=== PATIENT | female | born 1945 | race American Indian/Alaskan Native ===

== ENCOUNTER 2017-09-05 13:23 | Inpatient (IN) | payer OTHER ==
--- NOTE | 2017-09-05 13:28 | Emergency Department Report ---
ED General Adult HPI - General Stated complaint: CVA Time Seen by Provider: 09/05/17 13:26 - History of Present Illness Initial comments: Patient is a 71-year-old female past medical history of right-sided weakness and cervical spinal surgery. Presents with right-sided weakness today. Patient does not speak Norwegian she speaks [place] of [place]. History is obtained by patient's son and EMS. Around 11:30 today patient was noticed by family to be on the floor. Is unknown when she fell. She has right sided weakness and is not able to move her right arm and right leg. Patient has not been taking some of her antihypertensive medication. Patient currently is not in any pain. She's had some right-sided weakness before but it has improved with surgery. Her son says that this is the worst her weakness has been. - Related Data Home Medications Medication Instructions Recorded Confirmed Last Taken Lisinopril [Zestril] 20 mg PO DAILY 09/05/17 09/05/17 Unknown Metoprolol [Lopressor] 25 mg PO BID 09/05/17 09/05/17 09/05/17 Pravastatin [Pravachol] 20 mg PO DAILY 09/05/17 09/05/17 Unknown Allergies Allergy/AdvReac Type Severity Reaction Status Date / Time No Known Allergies Allergy Unverified 09/05/17 13:24 ED Review of Systems ROS: Stated complaint: CVA Other details as noted in HPI Comment: Unobtainable due to pts medical conditions ED Past Medical Hx - Medications Home Medications: Home Medications Medication Instructions Recorded Confirmed Last Taken Type Lisinopril [Zestril] 20 mg PO DAILY 09/05/17 09/05/17 Unknown History Metoprolol [Lopressor] 25 mg PO BID 09/05/17 09/05/17 09/05/17 History Pravastatin [Pravachol] 20 mg PO DAILY 09/05/17 09/05/17 Unknown History ED Physical Exam - General General appearance: alert, in no apparent distress - Head Head exam: Present: atraumatic, normocephalic - Eye Eye exam: Present: normal appearance - ENT ENT exam: Present: mucous membranes moist - Neck Neck exam: Present: normal inspection - Respiratory Respiratory exam: Present: normal lung sounds bilaterally. Absent: respiratory distress - Cardiovascular Cardiovascular Exam: Present: regular rate, normal rhythm. Absent: systolic murmur, diastolic murmur, rubs, gallop - GI/Abdominal GI/Abdominal exam: Present: soft, normal bowel sounds - Extremities Exam Extremities exam: Present: normal inspection - Back Exam Back exam: Present: normal inspection - Neurological Exam Neurological exam: Present: motor sensory deficit (right arm and right leg parathesia. Mild right facial droop. ) - Psychiatric Psychiatric exam: Present: normal affect, normal mood - Skin Skin exam: Present: warm, dry, intact, normal color. Absent: rash - Other Other exam information: Patient's NIH stroke scale is 14 ED Course Vital Signs 09/05/17 09/05/17 09/05/17 13:41 14:08 14:09 Temperature 97.9 F Pulse Rate 61 52 L Respiratory 18 21 28 H Rate Blood Pressure 169/96 174/93 Blood Pressure [Left] O2 Sat by Pulse 98 98 98 Oximetry 09/05/17 09/05/17 09/05/17 14:17 14:30 15:00 Temperature 97.9 F 97.8 F Pulse Rate 59 L 53 L 61 Respiratory 21 15 22 Rate Blood Pressure 167/87 172/95 Blood Pressure 172/93 167/87 [Left] O2 Sat by Pulse 98 99 100 Oximetry 09/05/17 09/05/17 09/05/17 15:30 16:00 16:30 Temperature Pulse Rate 63 62 59 L Respiratory 23 29 H 31 H Rate Blood Pressure 171/93 169/105 184/94 Blood Pressure [Left] O2 Sat by Pulse 98 98 98 Oximetry 09/05/17 16:45 Temperature Pulse Rate 58 L Respiratory Rate Blood Pressure 174/93 Blood Pressure [Left] O2 Sat by Pulse Oximetry ED Medical Decision Making - Lab Data Result diagrams: 09/05/17 13:25 09/05/17 13:25 Lab Results 09/05/17 09/05/17 09/05/17 Range/Units 13:25 13:25 13:25 WBC 4.8 (4.5-11.0) K/mm3 RBC 4.70 (3.65-5.03) M/mm3 Hgb 12.6 (10.1-14.3) gm/dl Hct 38.2 (30.3-42.9) % MCV 81 (79-97) fl MCH 27 L (28-32) pg MCHC 33 (30-34) % RDW 14.1 (13.2-15.2) % Plt Count 229 (140-440) K/mm3 Lymph % (Auto) 53.4 H (13.4-35.0) % [place] % (Auto) 8.7 H (0.0-7.3) % Eos % (Auto) 2.1 (0.0-4.3) % Baso % (Auto) 0.4 (0.0-1.8) % Lymph # 2.6 (1.2-5.4) K/mm3 [place] # 0.4 (0.0-0.8) K/mm3 Eos # 0.1 (0.0-0.4) K/mm3 Baso # 0.0 (0.0-0.1) K/mm3 Seg Neutrophils % 35.4 L (40.0-70.0) % Seg Neutrophils # 1.7 L (1.8-7.7) K/mm3 PT 13.6 (12.2-14.9) Sec. INR 0.99 (0.87-1.13) APTT 25.4 (24.2-36.6) Sec. Thrombin Time (15.1-19.6) Sec. Sodium 142 (137-145) mmol/L Potassium 4.1 (3.6-5.0) mmol/L Chloride 104.8 (98-107) mmol/L Carbon Dioxide 25 (22-30) mmol/L Anion Gap 16 mmol/L BUN 19 H (7-17) mg/dL Creatinine 0.8 (0.7-1.2) mg/dL Estimated GFR > 60 ml/min BUN/Creatinine Ratio 24 % Glucose 102 H (65-100) mg/dL Calcium 8.8 (8.4-10.2) mg/dL Troponin T < 0.010 (0.00-0.029) ng/mL 09/05/17 Range/Units 13:25 WBC (4.5-11.0) K/mm3 RBC (3.65-5.03) M/mm3 Hgb (10.1-14.3) gm/dl Hct (30.3-42.9) % MCV (79-97) fl MCH (28-32) pg MCHC (30-34) % RDW (13.2-15.2) % Plt Count (140-440) K/mm3 Lymph % (Auto) (13.4-35.0) % [place] % (Auto) (0.0-7.3) % Eos % (Auto) (0.0-4.3) % Baso % (Auto) (0.0-1.8) % Lymph # (1.2-5.4) K/mm3 [place] # (0.0-0.8) K/mm3 Eos # (0.0-0.4) K/mm3 Baso # (0.0-0.1) K/mm3 Seg Neutrophils % (40.0-70.0) % Seg Neutrophils # (1.8-7.7) K/mm3 PT (12.2-14.9) Sec. INR (0.87-1.13) APTT (24.2-36.6) Sec. Thrombin Time 15.0 L (15.1-19.6) Sec. Sodium (137-145) mmol/L Potassium (3.6-5.0) mmol/L Chloride (98-107) mmol/L Carbon Dioxide (22-30) mmol/L Anion Gap mmol/L BUN (7-17) mg/dL Creatinine (0.7-1.2) mg/dL Estimated GFR ml/min BUN/Creatinine Ratio % Glucose (65-100) mg/dL Calcium (8.4-10.2) mg/dL Troponin T (0.00-0.029) ng/mL - EKG Data -: EKG Interpreted by Ca - EKG Data 09/05/17 19:44 EKG shows normal sinus rhythm mild left atrial enlargement no ST segment elevation - Radiology Data Radiology results: report reviewed, image reviewed CT head: Shows no acute no cranial abnormality small changes of ischemic vascular disease. - Medical Decision Making Chief medical diagnosis: Ischemic Stroke Differential multiple diagnosis: Deshawn's paralysis, hypoglycemia, TIA, radiculopathy Of it CBC, CMP, CK, stroke robot, EKG, troponin Patient most likely has an ischemic stroke. This unknown if her stroke was at 11:30 her NIH stroke scale is roughly 16. Due to patient having neck surgery and not knowing when it was occurred it is one of the absolute contraindications for TPA. Patient's blood pressure is also 184/94 most likely due to ischemic hypertension. I will give patient medications for her blood pressure. Patient will need to be admitted to the hospitalist service due to her stroke and most likely will need a stroke workup. Discussed with Dr. Lin the hospitalist. Critical care attestation.: If time is entered above; I have spent that time in minutes in the direct care of this critically ill patient, excluding procedure time. ED Disposition Clinical Impression: Left-sided weakness CVA (cerebral vascular accident) Qualifiers: CVA mechanism: unspecified Qualified Code(s): I63.9 - Cerebral infarction, unspecified Hypertension Qualifiers: Hypertension type: unspecified Qualified Code(s): I10 - Essential (primary) hypertension Disposition: OP ADMIT IP TO THIS HOSP Is pt being admited?: No Does the pt Need Aspirin: No Condition: Stable
[2017-09-05 13:32] LABS: Basophils % (Auto) 0.4 % (0.0-1.8); Eosinophils % (Auto) 2.1 % (0.0-4.3); Hematocrit 38.2 % (30.3-42.9); Hemoglobin 12.6 gm/dl (10.1-14.3); Mean Corpuscular HGB Conc 33 % (30-34); Mean Corpuscular Hemoglobin 27 pg (28-32); Mean Corpuscular Volume 81 fl (79-97); Platelet Count 229 K/mm3 (140-440); Red Cell Distribution Width 14.1 % (13.2-15.2); White Blood Count 4.8 K/mm3 (4.5-11.0)
[2017-09-05 13:42] LABS: INR 0.99 (0.87-1.13)
[2017-09-05 13:43] LABS: Partial Thromboplastin Time 25.4 Sec. (24.2-36.6)
[2017-09-05 13:47] LABS: Anion Gap 16 mmol/L; BUN/Creatinine Ratio 24; Blood Urea Nitrogen 19 mg/dL (7-17); Calcium 8.8 mg/dL (8.4-10.2); Carbon Dioxide 25 mmol/L (22-30); Chloride 104.8 mmol/L (98-107); Glucose 102 mg/dL (65-100); Potassium 4.1 mmol/L (3.6-5.0); Sodium 142 mmol/L (137-145)
--- NOTE | 2017-09-05 14:02 | Cat Scan Report ---
FINAL REPORT EXAM: CT HEAD/BRAIN WO CON HISTORY: neuro deficits \T\lt; 6hrs or sx present upon awakening TECHNIQUE: CT of the head was performed without intravenous contrast. PRIORS: None. FINDINGS: The ventricles are normal in shape and position. The ventricles are nondilated. No intracranial hemorrhage, mass, mass effect, midline shift or evidence of acute ischemic infarct. The basilar cisterns are patent. Mild scattered areas of low-attenuation are seen in the periventricular and subcortical white matter. The paranasal sinuses are clear. The extracranial soft tissues demonstrate no abnormality. The calvarium is intact. The orbits are intact. The mastoid air cells are clear. IMPRESSION: 1. No acute intracranial abnormality. 2. Mild findings of chronic microvascular ischemic disease.
--- NOTE | 2017-09-05 15:56 | History and Physical Report ---
History of Present Illness Date of examination: 09/05/17 Date of admission: 09/05/17 Chief complaint: CC R Side weakness since about 10 AM History of present illness: SAVOONGA:71 year old AAF from [facility] who speaks [place] language which is commonly spoken in [place] brought in for Rt sided weakness and Aphasia.Patient is normally talking and walking around.Patient was home alone and when the daughter arrived-patient was found to be slumped over on the floor in the kitchen. Unable to talk and total right sided weakness.Noseizures.Has HTn and HLD .Questionable history of CVA in past.No CAD.No Sob.No chest pain.Language barrier present. Past History Past Medical History: hypertension, hyperlipidemia, stroke (???) Past Surgical History: No surgical history Social history: no significant social history, lives with family, full code Family history: hypertension Medications and Allergies Allergies Allergy/AdvReac Type Severity Reaction Status Date / Time No Known Allergies Allergy Unverified 09/05/17 13:24 Home Medications Medication Instructions Recorded Confirmed Last Taken Type Lisinopril [Zestril] 20 mg PO DAILY 09/05/17 09/05/17 Unknown History Metoprolol [Lopressor] 25 mg PO BID 09/05/17 09/05/17 09/05/17 History Pravastatin [Pravachol] 20 mg PO DAILY 09/05/17 09/05/17 Unknown History Review of Systems All systems: negative Constitutional: no weight loss, no weight gain, no fever, no chills, no sweats, no night sweats Ears, nose, mouth and throat: no dysphagia, no hoarseness, no sore throat Breasts: deferred Cardiovascular: no chest pain, no orthopnea, no palpitations, no rapid/ irregular heart beat, no edema, no syncope, no lightheadedness, no shortness of breath Respiratory: no cough, no cough with sputum, no excessive sputum, no hemoptysis , no shortness of breath, no dyspnea on exertion Gastrointestinal: no abdominal pain, no nausea, no vomiting, no diarrhea, no constipation, no change in bowel habits, no hematemesis, no coffee ground emesis Genitourinary Female: no flank pain, no dysuria, no urinary frequency, no urgency, no stress incontinence, no post void dribbling, no incomplete emptying , no urge incontinence, no mixed incontinence, no difficulty voiding, no hematuria Menstruation: ammenorrhea Rectal: no pain Musculoskeletal: no neck stiffness, no neck pain, no shooting arm pain, no arm numbness/tingling, no low back pain, no shooting leg pain, no leg numbness/ tingling, no redness of joints Integumentary: no rash, no pruritis, no redness, no sores, no wounds, no jaundice, no boils, no blisters Neurological: aphasia, gait dysfunction, motor disturbance, paralysis (RLE /RUE weakness), no seizures, no syncope Psychiatric: no anxiety, no memory loss, no change in sleep habits, no sleep disturbances, no insomnia, no hypersomnia, no change in appetite, no change in libido Endocrine: no cold intolerance, no heat intolerance, no polyphagia, no excessive thirst, no polydipsia, no polyuria, no nocturia, no excessive sweating , no flushing, no weight change Hematologic/Lymphatic: no easy bruising, no easy bleeding Allergic/Immunologic: no urticaria, no allergic rhinitis, no wheezing Exam - Constitutional Vitals: Temp Pulse Resp BP Pulse Ox 97.8 F 53 L 15 167/87 99 09/05/17 15:00 09/05/17 15:00 09/05/17 15:00 09/05/17 15:00 09/05/17 15:00 General appearance: Present: no acute distress, well-nourished - EENT Eyes: Present: PERRL ENT: hearing intact, clear oral mucosa - Neck Neck: Present: supple, normal ROM - Respiratory Respiratory effort: normal Respiratory: bilateral: CTA - Cardiovascular Heart rate: 80 Rhythm: regular Heart Sounds: Present: S1 & S2. Absent: rub, click - Extremities Extremities: no ischemia, pulses intact, pulses symmetrical, No edema Peripheral Pulses: within normal limits - Abdominal General gastrointestinal: Present: soft, non-tender, non-distended, normal bowel sounds Female genitourinary: Present: normal - Integumentary Integumentary: Present: clear, warm, dry - Musculoskeletal Musculoskeletal: right sided weakness (0/5 power in RUE and 1/5 power in RLE reflexesbrisk on rt side Aphasic ) - Psychiatric Psychiatric: depressed, other (Memory could not be evaluated b/c of aphasia and Language barrier) - Neurologic Neurologic: CNII-XII intact, focal deficits, other Results - Labs CBC & Chem 7: 09/05/17 13:25 09/05/17 13:25 Labs: Laboratory Last Values WBC 4.8 K/mm3 (4.5-11.0) 09/05/17 13:25 RBC 4.70 M/mm3 (3.65-5.03) 09/05/17 13:25 Hgb 12.6 gm/dl (10.1-14.3) 09/05/17 13:25 Hct 38.2 % (30.3-42.9) 09/05/17 13:25 MCV 81 fl (79-97) 09/05/17 13:25 MCH 27 pg (28-32) L 09/05/17 13:25 MCHC 33 % (30-34) 09/05/17 13:25 RDW 14.1 % (13.2-15.2) 09/05/17 13:25 Plt Count 229 K/mm3 (140-440) 09/05/17 13:25 Lymph % (Auto) 53.4 % (13.4-35.0) H 09/05/17 13:25 [place] % (Auto) 8.7 % (0.0-7.3) H 09/05/17 13:25 Eos % (Auto) 2.1 % (0.0-4.3) 09/05/17 13:25 Baso % (Auto) 0.4 % (0.0-1.8) 09/05/17 13:25 Lymph # 2.6 K/mm3 (1.2-5.4) 09/05/17 13:25 [place] # 0.4 K/mm3 (0.0-0.8) 09/05/17 13:25 Eos # 0.1 K/mm3 (0.0-0.4) 09/05/17 13:25 Baso # 0.0 K/mm3 (0.0-0.1) 09/05/17 13:25 Seg Neutrophils % 35.4 % (40.0-70.0) L 09/05/17 13:25 Seg Neutrophils # 1.7 K/mm3 (1.8-7.7) L 09/05/17 13:25 PT 13.6 Sec. (12.2-14.9) 09/05/17 13:25 INR 0.99 (0.87-1.13) 09/05/17 13:25 APTT 25.4 Sec. (24.2-36.6) 09/05/17 13:25 Thrombin Time 15.0 Sec. (15.1-19.6) L 09/05/17 13:25 Sodium 142 mmol/L (137-145) 09/05/17 13:25 Potassium 4.1 mmol/L (3.6-5.0) 09/05/17 13:25 Chloride 104.8 mmol/L (98-107) 09/05/17 13:25 Carbon Dioxide 25 mmol/L (22-30) 09/05/17 13:25 Anion Gap 16 mmol/L 09/05/17 13:25 BUN 19 mg/dL (7-17) H 09/05/17 13:25 Creatinine 0.8 mg/dL (0.7-1.2) 09/05/17 13:25 Estimated GFR > 60 ml/min 09/05/17 13:25 BUN/Creatinine Ratio 24 % 09/05/17 13:25 Glucose 102 mg/dL (65-100) H 09/05/17 13:25 Calcium 8.8 mg/dL (8.4-10.2) 09/05/17 13:25 Troponin T < 0.010 ng/mL (0.00-0.029) 09/05/17 13:25 - Imaging and Cardiology EKG: report reviewed Assessment and Plan Advance Directives: Yes (Full code) VTE prophylaxis?: Chemical Plan of care discussed with patient/family: Yes - Patient Problems (1) CVA (cerebral vascular accident) Current Visit: Yes Status: Acute Qualifiers: CVA mechanism: unspecified Precerebral and cerebral artery: P Laterality of affected vessel: L Qualified Code(s): I63.9 - Cerebral infarction, unspecified Plan to address problem: Rt sided paralysis.MCA territory.Stroke w/u initiated in the form of MRI MRA ECHO and CDS PT/OT ordered. (2) Hypertension Current Visit: Yes Status: Chronic Qualifiers: Hypertension type: essential hypertension Qualified Code(s): I10 - Essential (primary) hypertension Plan to address problem: Resume Lisinopril and Metoprolol if swallow screen is normal (3) HLD (hyperlipidemia) Current Visit: Yes Status: Chronic Qualifiers: Hyperlipidemia type: mixed hyperlipidemia Qualified Code(s): E78.2 - Mixed hyperlipidemia Plan to address problem: Cont Statins. (4) DVT prophylaxis Current Visit: Yes Status: Acute Plan to address problem: On Lovenox
[2017-09-05] MEDS ORDERED: NON-FORMULARY (Pravastatin 20 MG) PO SCH (16:00)
[2017-09-05] MEDS ORDERED: PHENERGAN PR PRN (16:09)
[2017-09-05] MEDS ORDERED: ZOFRAN IV PRN (16:09)
[2017-09-05] MEDS ORDERED: TYLENOL PO PRN (16:09)
[2017-09-05] MEDS ORDERED: NORCO 5/325 PO PRN (16:09)
[2017-09-05] MEDS ORDERED: DULCOLAX PR PRN (16:09)
[2017-09-05] MEDS ORDERED: MILK OF MAGNESIA PO PRN (16:09)
[2017-09-05] MEDS ORDERED: REGLAN PO PRN (16:09)
[2017-09-05] MEDS ORDERED: SODIUM CHLORIDE FLUSH SYRINGE 10 ML IV PRN (16:09)
[2017-09-05] MEDS ORDERED: LOPRESSOR ONE (16:26)
[2017-09-05] MEDS: LOPRESSOR PO SCH (16:45)
[2017-09-05] MEDS: ZESTRIL PO SCH (16:45)
[2017-09-05] MEDS: ZOCOR PO SCH (23:45)
[2017-09-06] MEDS ORDERED: LOVENOX SUB-Q SCH (10:00)
[2017-09-06] MEDS: ZESTRIL PO SCH (10:03)
[2017-09-06] MEDS: LOPRESSOR PO SCH ×2 (10:03→22:03)
[2017-09-06] MEDS: LOVENOX SUB-Q SCH (10:06)
--- NOTE | 2017-09-06 10:43 | Progress Note ---
Assessment and Plan Assessment and plan: 71 year old AAF from [facility] who speaks [place] language which is commonly spoken in [place] brought in for Rt sided weakness and Aphasia.Patient is normally talking and walking around.Patient was home alone and when the daughter arrived-patient was found to be slumped over on the floor in the kitchen. Unable to talk and total right sided weakness. Noseizures. Has HTn and HLD . Questionable history of CVA in past.No CAD.No Sob.No chest pain.Language barrier present. She's had some right-sided weakness before but it has improved with surgery. Her son says that this is the worst her weakness has been. CVA * Neurology consult, Neuro checks, ASA, STATIN, ECHO, MRI/MRA, CAROTID US. REHAB EVAL, PT/OT, swallow eval and speech eval * MRI/MRA reveals a large left MCA stroke with large area of ischemia of the left frontal/parietal/temporal lobe with partial occlusive disease intracranial left MCA artery but patent on the sides. * Await neurology input will likely need vascular eval. * Unknown time of onset Fall * Secondary to CVA in a patient with already hemiplegia. Right sided hemiplegia * Worse due to the stroke. Prior history was secondary to nerve entrapment. Patient did have a neck surgery with screws in the back. * She ambulates with a limp and cane HTN * Continue good control, outside window of permissive HTN HLD * Initiate statin therapy DVT/GI prophy Plan discussed in detail with family History Interval history: patient seen and examined, son and daughter inlaw at the bedside. still with right facial drop Hospitalist Physical - Physical exam Narrative exam: VITAL SIGNS: Reviewed. GENERAL: The patient appeared well nourished and normally developed. Vital signs as documented. HEAD: No signs of head trauma. EYES: Pupils are equal. Extraocular motions intact. EARS: Hearing grossly intact. MOUTH: Oropharynx is normal. NECK: No adenopathy, no JVD. CHEST: Chest with clear breath sounds bilaterally. No wheezes, rales, or rhonchi. CARDIAC: Regular rate and rhythm. S1 and S2, without murmurs, gallops, or rubs. VASCULAR: No Edema. Peripheral pulses normal and equal in all extremities. ABDOMEN: Soft, without detectable tenderness. No sign of distention. No rebound or guarding, and no masses palpated. Bowel Sounds normal. MUSCULOSKELETAL: Good range of motion of all major joints. Extremities without clubbing, cyanosis or edema. NEUROLOGIC EXAM: Alert and oriented x 3. Right facial droop. Motor strength on the right 2 over 5. aphasic. Follows commands. PSYCHIATRIC: Mood normal. SKIN: No rash or lesions. - Constitutional Vitals: Temp Pulse Resp BP Pulse Ox 98.6 F 84 18 133/86 98 09/06/17 09:34 09/06/17 10:03 09/06/17 09:34 09/06/17 10:03 09/06/17 09:35 General appearance: Present: no acute distress, well-nourished Results - Labs CBC & Chem 7: 09/05/17 13:25 09/05/17 13:25 Labs: Laboratory Last Values WBC 4.8 K/mm3 (4.5-11.0) 09/05/17 13:25 RBC 4.70 M/mm3 (3.65-5.03) 09/05/17 13:25 Hgb 12.6 gm/dl (10.1-14.3) 09/05/17 13:25 Hct 38.2 % (30.3-42.9) 09/05/17 13:25 MCV 81 fl (79-97) 09/05/17 13:25 MCH 27 pg (28-32) L 09/05/17 13:25 MCHC 33 % (30-34) 09/05/17 13:25 RDW 14.1 % (13.2-15.2) 09/05/17 13:25 Plt Count 229 K/mm3 (140-440) 09/05/17 13:25 Lymph % (Auto) 53.4 % (13.4-35.0) H 09/05/17 13:25 [place] % (Auto) 8.7 % (0.0-7.3) H 09/05/17 13:25 Eos % (Auto) 2.1 % (0.0-4.3) 09/05/17 13:25 Baso % (Auto) 0.4 % (0.0-1.8) 09/05/17 13:25 Lymph # 2.6 K/mm3 (1.2-5.4) 09/05/17 13:25 [place] # 0.4 K/mm3 (0.0-0.8) 09/05/17 13:25 Eos # 0.1 K/mm3 (0.0-0.4) 09/05/17 13:25 Baso # 0.0 K/mm3 (0.0-0.1) 09/05/17 13:25 Seg Neutrophils % 35.4 % (40.0-70.0) L 09/05/17 13:25 Seg Neutrophils # 1.7 K/mm3 (1.8-7.7) L 09/05/17 13:25 PT 13.6 Sec. (12.2-14.9) 09/05/17 13:25 INR 0.99 (0.87-1.13) 09/05/17 13:25 APTT 25.4 Sec. (24.2-36.6) 09/05/17 13:25 Thrombin Time 15.0 Sec. (15.1-19.6) L 09/05/17 13:25 Sodium 142 mmol/L (137-145) 09/05/17 13:25 Potassium 4.1 mmol/L (3.6-5.0) 09/05/17 13:25 Chloride 104.8 mmol/L (98-107) 09/05/17 13:25 Carbon Dioxide 25 mmol/L (22-30) 09/05/17 13:25 Anion Gap 16 mmol/L 09/05/17 13:25 BUN 19 mg/dL (7-17) H 09/05/17 13:25 Creatinine 0.8 mg/dL (0.7-1.2) 09/05/17 13:25 Estimated GFR > 60 ml/min 09/05/17 13:25 BUN/Creatinine Ratio 24 % 09/05/17 13:25 Glucose 102 mg/dL (65-100) H 09/05/17 13:25 POC Glucose 124 (70-105) H 09/06/17 08:24 Hemoglobin A1c 5.4 % (4-6) 09/06/17 08:40 Calcium 8.8 mg/dL (8.4-10.2) 09/05/17 13:25 Troponin T < 0.010 ng/mL (0.00-0.029) 09/05/17 13:25 Triglycerides 102 mg/dL (2-149) 09/06/17 08:40 Cholesterol 241 mg/dL (50-199) H 09/06/17 08:40 LDL Cholesterol Direct 149 mg/dL (50-130) H 09/06/17 08:40 HDL Cholesterol 72 mg/dL (40-59) H 09/06/17 08:40 Cholesterol/HDL Ratio 3.34 % 09/06/17 08:40 - Imaging and Cardiology MRI - head: image reviewed (CVA)
[2017-09-06] MEDS ORDERED: Fluarix Quad 2017-2018(36 MOS+) IM ONE (12:00)
--- NOTE | 2017-09-06 13:51 | Consultation ---
History of Present Illness - Reason for Consult Consult date: 09/06/17 stroke - History of Present Illness I have reviewed the MRI/ MRA personally and clearly there is very large Ledt MCA stroke and large area of ischemia of the left frontal/ parietal/ temporal lobe and there is partial occlusive disease intracranial of left MCA branch but patency of other side branches I will check with rasdiology as there may be diseas as well of the right MCA Thanks Past History Past Medical History: hypertension, hyperlipidemia, stroke (???) Past Surgical History: No surgical history Social history: no significant social history, lives with family, full code Family history: hypertension Medications and Allergies Allergies Allergy/AdvReac Type Severity Reaction Status Date / Time No Known Allergies Allergy Unverified 09/05/17 13:24 Home Medications Medication Instructions Recorded Confirmed Last Taken Type Lisinopril [Zestril] 20 mg PO DAILY 09/05/17 09/05/17 Unknown History Metoprolol [Lopressor] 25 mg PO BID 09/05/17 09/05/17 09/05/17 History Pravastatin [Pravachol] 20 mg PO DAILY 09/05/17 09/05/17 Unknown History Active Meds: Active Medications Acetaminophen (Tylenol) 650 mg PO Q4H PRN PRN Reason: Pain, Mild (1-3) Acetaminophen/Hydrocodone Bitart ([place] 5/325) 2 each PO Q6H PRN PRN Reason: Pain, Moderate (4-6) Aspirin (Aspirin) 325 mg PO QDAY [facility] Bisacodyl (Dulcolax) 10 mg DC QDAY PRN PRN Reason: Constipation Enoxaparin Sodium (Lovenox) 40 mg SUB-Q QDAY@1000 [facility] Last Admin: 09/06/17 10:06 Dose: 40 mg Lisinopril (Zestril) 20 mg PO DAILY [facility] Last Admin: 09/06/17 10:03 Dose: 20 mg Magnesium Hydroxide (Milk Of Magnesia) 30 ml PO Q4H PRN PRN Reason: Constipation Metoclopramide HCl (Reglan) 10 mg PO Q6H PRN PRN Reason: Nausea And Vomiting Metoprolol Tartrate (Lopressor) 25 mg PO BID [facility] Last Admin: 09/06/17 10:03 Dose: 25 mg Ondansetron HCl (Zofran) 4 mg IV Q8H PRN PRN Reason: N/V unrelieved by Reglan Pneumococcal Polyvalent Vaccine (Pneumovax 23) 0.5 ml IM .ONCE ONE Stop: 09/06/17 20:01 Promethazine HCl (Phenergan) 25 mg DC Q6H PRN PRN Reason: Nausea And Vomiting Simvastatin (Zocor) 20 mg PO QHS [facility] Last Admin: 09/05/17 23:45 Dose: Not Given Sodium Chloride (Sodium Chloride Flush Syringe 10 Ml) 10 ml IV PRN PRN PRN Reason: LINE FLUSH Exam - Constitutional Vitals: Temp Pulse Resp BP Pulse Ox 98.6 F 84 18 133/86 98 09/06/17 09:34 09/06/17 10:03 09/06/17 09:34 09/06/17 10:03 09/06/17 09:35 Results - Labs CBC & Chem 7: 09/05/17 13:25 09/05/17 13:25 Labs: Abnormal lab results 09/06/17 09/06/17 09/06/17 Range/Units 08:24 08:40 11:57 POC Glucose 124 H 107 H (70-105) Cholesterol 241 H (50-199) mg/dL LDL Cholesterol Direct 149 H (50-130) mg/dL HDL Cholesterol 72 H (40-59) mg/dL
--- NOTE | 2017-09-06 14:06 | Magnetic Resonance Report ---
MRI BRAIN WITHOUT CONTRAST INDICATION: CVA. COMPARISON: Yesterday's head CT. FINDINGS: Noncontrast multiplanar and multisequence MRI of the brain demonstrates large, approximately 12 x 4.5 cm left MCA territory predominantly frontoparietal infarct with extension into the left periventricular wright radiata as on diffusion image 25 as also some temporal lobe involvement along its inferior extent as on image 19. No significant midline shift, though mild sulcal edema and slight effacement/mass effect upon the left lateral ventricle suspected. Normal remainder ventricles and sulci. Mild periventricular and few white matter FLAIR and T2 weighted hyperintensities. No acute hemorrhage or midline shift. No abnormal intra-axial masses or fluid collections. Normal major intracranial vascular flow-voids. Normal posterior fossa with symmetric seventh and eighth nerve complexes and preserved basilar cisterns. Normal eye globes. Slight nasal septal deviation. Susceptibility artifact from likely upper cervical hardware noted. Clear imaged paranasal sinuses and mastoid air cells. Normal midline structures without evidence of Chiari malformation. CONCLUSION: Large left MCA acute infarct and few other findings, as above. Thank you for the opportunity to participate in this patient's care.
--- NOTE | 2017-09-06 14:12 | Magnetic Resonance Report ---
MRA HEAD WITHOUT CONTRAST INDICATION: CVA. COMPARISON: None similar. FINDINGS: MRA of the head performed without intravenous contrast and demonstrates no evidence of occlusion or vascular malformation. Some atherosclerotic changes along the cavernous ICA about its anterior turn may be noted. Left M1 segment patent, though its caliber somewhat narrows/attenuates distally as on axial source series 3, images 66-71 near its division/M2 branches about the sylvian fissure. Dominant left vertebral artery with patent vertebrobasilar system. Please note that detection of aneurysms less than 5 mm is limited on this exam. CONCLUSION: Normal study of [place] except for narrowing/attenuation of left distal M1 artery/proximal M2 branches about the left sylvian fissure, presumed spasm with further distal M2 and M3 branches appearing patent. Please correlate. Thank you for the opportunity to participate in this patient's care.
[2017-09-06] MEDS: ASPIRIN PO SCH (15:34)
[2017-09-06] MEDS ORDERED: PNEUMOVAX 23 IM ONE (20:00)
[2017-09-06] MEDS: ZOCOR PO SCH (22:04)
--- NOTE | 2017-09-07 09:36 | Progress Note ---
Assessment and Plan Assessment and plan: 71 year old AAF from [facility] who speaks Fulani language which is commonly spoken in [place] brought in for Rt sided weakness and Aphasia.Patient is normally talking and walking around.Patient was home alone and when the daughter arrived-patient was found to be slumped over on the floor in the kitchen. Unable to talk and total right sided weakness. Noseizures. Has HTn and HLD . Questionable history of CVA in past.No CAD.No Sob.No chest pain.Language barrier present. She's had some right-sided weakness before but it has improved with surgery. Her son says that this is the worst her weakness has been. CVA * Neurology consult, Neuro checks, ASA, STATIN, ECHO, MRI/MRA, CAROTID US. 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 * Neurology input noted * Unknown time of onset * Speech eval concrening for aspiration. started on puree diet with thin liquids and aspiration precautions Fever * R/O sepsis, check lactate, check crp, blood cultures, ?accuracy of data, no one was notified. * check chest xray as patient had a stroke and possibly could have aspirated * Give a dose of levaquin While awaiting work up AND if xray is negative, discontinue. Fall * Secondary to CVA in a patient with already hemiplegia. Right sided hemiplegia * Worse due to the stroke. Prior history was secondary to nerve entrapment. Patient did have a neck surgery with screws in the back. * She ambulates with a limp and cane HTN * Continue good control, outside window of permissive HTN HLD * Initiate statin therapy DVT/GI prophy Plan discussed in detail with family Anticipate discharge with Rehab in AM if no further fever. Discussed in detail with son at the bedside PATIENT IS UNISURED AND THIS MAY CREATE AN ISSUE WITH DISCHARGE WILL OBTAIN CONSULTATION WITH CASE MANAGEMENT History Interval history: patient seen and examined, son and daughter inlaw at the bedside. still with right facial drop Hospitalist Physical - Physical exam Narrative exam: VITAL SIGNS: Reviewed. GENERAL: The patient appeared well nourished and normally developed. Vital signs as documented. HEAD: No signs of head trauma. EYES: Pupils are equal. Extraocular motions intact. EARS: Hearing grossly intact. MOUTH: Oropharynx is normal. NECK: No adenopathy, no JVD. CHEST: Chest with clear breath sounds bilaterally. No wheezes, rales, or rhonchi. CARDIAC: Regular rate and rhythm. S1 and S2, without murmurs, gallops, or rubs. VASCULAR: No Edema. Peripheral pulses normal and equal in all extremities. ABDOMEN: Soft, without detectable tenderness. No sign of distention. No rebound or guarding, and no masses palpated. Bowel Sounds normal. MUSCULOSKELETAL: Good range of motion of all major joints. Extremities without clubbing, cyanosis or edema. NEUROLOGIC EXAM: Alert and oriented x 3. Right facial droop. Motor strength on the right 2 over 5. aphasic. Follows commands. PSYCHIATRIC: Mood normal. SKIN: No rash or lesions. - Constitutional Vitals: Temp Pulse Resp BP Pulse Ox 98.9 F 67 18 144/76 96 09/07/17 08:00 09/07/17 08:00 09/07/17 08:00 09/07/17 08:00 09/07/17 08:00 General appearance: Present: no acute distress, well-nourished Results - Labs CBC & Chem 7: 09/05/17 13:25 09/05/17 13:25 Labs: Laboratory Last Values WBC 4.8 K/mm3 (4.5-11.0) 09/05/17 13:25 RBC 4.70 M/mm3 (3.65-5.03) 09/05/17 13:25 Hgb 12.6 gm/dl (10.1-14.3) 09/05/17 13:25 Hct 38.2 % (30.3-42.9) 09/05/17 13:25 MCV 81 fl (79-97) 09/05/17 13:25 MCH 27 pg (28-32) L 09/05/17 13:25 MCHC 33 % (30-34) 09/05/17 13:25 RDW 14.1 % (13.2-15.2) 09/05/17 13:25 Plt Count 229 K/mm3 (140-440) 09/05/17 13:25 Lymph % (Auto) 53.4 % (13.4-35.0) H 09/05/17 13:25 Irwin % (Auto) 8.7 % (0.0-7.3) H 09/05/17 13:25 Eos % (Auto) 2.1 % (0.0-4.3) 09/05/17 13:25 Baso % (Auto) 0.4 % (0.0-1.8) 09/05/17 13:25 Lymph # 2.6 K/mm3 (1.2-5.4) 09/05/17 13:25 Irwin # 0.4 K/mm3 (0.0-0.8) 09/05/17 13:25 Eos # 0.1 K/mm3 (0.0-0.4) 09/05/17 13:25 Baso # 0.0 K/mm3 (0.0-0.1) 09/05/17 13:25 Seg Neutrophils % 35.4 % (40.0-70.0) L 09/05/17 13:25 Seg Neutrophils # 1.7 K/mm3 (1.8-7.7) L 09/05/17 13:25 PT 13.6 Sec. (12.2-14.9) 09/05/17 13:25 INR 0.99 (0.87-1.13) 09/05/17 13:25 APTT 25.4 Sec. (24.2-36.6) 09/05/17 13:25 Thrombin Time 15.0 Sec. (15.1-19.6) L 09/05/17 13:25 Sodium 142 mmol/L (137-145) 09/05/17 13:25 Potassium 4.1 mmol/L (3.6-5.0) 09/05/17 13:25 Chloride 104.8 mmol/L (98-107) 09/05/17 13:25 Carbon Dioxide 25 mmol/L (22-30) 09/05/17 13:25 Anion Gap 16 mmol/L 09/05/17 13:25 BUN 19 mg/dL (7-17) H 09/05/17 13:25 Creatinine 0.8 mg/dL (0.7-1.2) 09/05/17 13:25 Estimated GFR > 60 ml/min 09/05/17 13:25 BUN/Creatinine Ratio 24 % 09/05/17 13:25 Glucose 102 mg/dL (65-100) H 09/05/17 13:25 POC Glucose 107 (70-105) H 09/06/17 11:57 Hemoglobin A1c 5.4 % (4-6) 09/06/17 08:40 Calcium 8.8 mg/dL (8.4-10.2) 09/05/17 13:25 Troponin T < 0.010 ng/mL (0.00-0.029) 09/05/17 13:25 Triglycerides 102 mg/dL (2-149) 09/06/17 08:40 Cholesterol 241 mg/dL (50-199) H 09/06/17 08:40 LDL Cholesterol Direct 149 mg/dL (50-130) H 09/06/17 08:40 HDL Cholesterol 72 mg/dL (40-59) H 09/06/17 08:40 Cholesterol/HDL Ratio 3.34 % 09/06/17 08:40
[2017-09-07] MEDS: ASPIRIN PO SCH (10:04)
[2017-09-07] MEDS: LOPRESSOR PO SCH ×2 (10:04→23:22)
[2017-09-07] MEDS: LOVENOX SUB-Q SCH (10:05)
[2017-09-07] MEDS: LEVAQUIN 750MG/150ML 750 MG/150 ML BAG IV SCH (10:05)
[2017-09-07] MEDS: ZESTRIL PO SCH (10:14)
--- NOTE | 2017-09-07 10:31 | XRay Report ---
AP CHEST :09/07/17 CLINICAL: Suspected aspiration pneumonia. COMPARISON:None. FINDINGS: The heart is normal size with a left ventricular contour. Normal pulmonary vessels.Aortic ectasia and tortuosity with prominent ascending aorta and calcification of the aortic knob. The lungs are normally expanded and clear. Mild right basal pleural thickening and partial opacification of the right costophrenic angle. The bones are unremarkable. IMPRESSION: No pneumonia. Suspect chronic pleural thickening in the right base. No CHF. Hypertensive changes in the aorta.
[2017-09-07] MEDS ORDERED: PNEUMOVAX 23 IM ONE (12:00)
--- NOTE | 2017-09-07 13:09 | Consultation ---
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 of the MRI Past History Past Medical History: hypertension, hyperlipidemia, stroke (???) Past Surgical History: No surgical history Social history: no significant social history, lives with family, full code Family history: hypertension Medications and Allergies Allergies Allergy/AdvReac Type Severity Reaction Status Date / Time No Known Allergies Allergy Unverified 09/05/17 13:24 Home Medications Medication Instructions Recorded Confirmed Last Taken Type Lisinopril [Zestril] 20 mg PO DAILY 09/05/17 09/05/17 Unknown History Metoprolol [Lopressor] 25 mg PO BID 09/05/17 09/05/17 09/05/17 History Pravastatin [Pravachol] 20 mg PO DAILY 09/05/17 09/05/17 Unknown History Active Meds: Active Medications Acetaminophen (Tylenol) 650 mg PO Q4H PRN PRN Reason: Pain, Mild (1-3) Acetaminophen/Hydrocodone Bitart (Harrell 5/325) 2 each PO Q6H PRN PRN Reason: Pain, Moderate (4-6) Aspirin (Aspirin) 325 mg PO QDAY [facility] Last Admin: 09/07/17 10:04 Dose: 325 mg Bisacodyl (Dulcolax) 10 mg NM QDAY PRN PRN Reason: Constipation Enoxaparin Sodium (Lovenox) 40 mg SUB-Q QDAY@1000 [facility] Last Admin: 09/07/17 10:05 Dose: 40 mg Levofloxacin/Dextrose (Levaquin 750mg/150ml) 750 mg in 150 mls @ 100 mls/hr IV Q24HR [facility] PRN Reason: Protocol Last Admin: 09/07/17 10:05 Dose: 100 mls/hr Lisinopril (Zestril) 20 mg PO DAILY [facility] Last Admin: 09/06/17 10:03 Dose: 20 mg Magnesium Hydroxide (Milk Of Magnesia) 30 ml PO Q4H PRN PRN Reason: Constipation Metoclopramide HCl (Reglan) 10 mg PO Q6H PRN PRN Reason: Nausea And Vomiting Metoprolol Tartrate (Lopressor) 25 mg PO BID [facility] Last Admin: 10/21/17 10:04 Dose: 25 mg Ondansetron HCl (Zofran) 4 mg IV Q8H PRN PRN Reason: N/V unrelieved by Christine Promethazine HCl (Phenergan) 25 mg NM Q6H PRN PRN Reason: Nausea And Vomiting Simvastatin (Zocor) 20 mg PO QHS [facility] Last Admin: 09/06/17 22:04 Dose: 20 mg Sodium Chloride (Sodium Chloride Flush Syringe 10 Ml) 10 ml IV PRN PRN PRN Reason: LINE FLUSH Exam - Constitutional Vitals: Temp Pulse Resp BP Pulse Ox 98.9 F 67 18 144/76 96 09/07/17 08:00 09/07/17 08:00 09/07/17 08:00 09/07/17 08:00 09/07/17 08:00 Results - Labs CBC & Chem 7: 09/05/17 13:25 09/05/17 13:25
[2017-09-07] MEDS: ZOSYN/NS 3.375GM/50ML 3.375 GM/50 ML BAG IV SCH (20:43)
[2017-09-07] MEDS: ZOCOR PO SCH ×2 (23:21→23:22)
[2017-09-08] MEDS: ZOSYN/NS 3.375GM/50ML 3.375 GM/50 ML BAG IV SCH ×5 (01:19→23:45)
[2017-09-08 04:46] LABS: Hemoglobin 13.3 gm/dl (10.1-14.3); Mean Corpuscular HGB Conc 33 % (30-34); Mean Corpuscular Hemoglobin 27 pg (28-32); Mean Corpuscular Volume 82 fl (79-97); Platelet Count 203 K/mm3 (140-440); Red Cell Distribution Width 14.3 % (13.2-15.2); White Blood Count 7.2 K/mm3 (4.5-11.0)
[2017-09-08 05:01] LABS: Anion Gap 20 mmol/L; BUN/Creatinine Ratio 17; Blood Urea Nitrogen 15 mg/dL (7-17); Calcium 8.8 mg/dL (8.4-10.2); Carbon Dioxide 25 mmol/L (22-30); Chloride 96.6 mmol/L (98-107); Glucose 119 mg/dL (65-100); Potassium 4.5 mmol/L (3.6-5.0); Sodium 137 mmol/L (137-145)
[2017-09-08] MEDS: LEVAQUIN 750MG/150ML 750 MG/150 ML BAG IV SCH (11:08)
[2017-09-08] MEDS: LOVENOX SUB-Q SCH (11:08)
[2017-09-08] MEDS: LOPRESSOR PO SCH ×3 (11:08→23:26)
[2017-09-08] MEDS: ZESTRIL PO SCH (11:08)
[2017-09-08] MEDS: ASPIRIN PO SCH (11:09)
--- NOTE | 2017-09-08 17:59 | Progress Note ---
Assessment and Plan 71 year old AAF from [facility] who speaks [place] language which is commonly spoken in [place] brought in for Rt sided weakness and Aphasia.Patient is normally talking and walking around.Patient was home alone and when the daughter arrived-patient was found to be slumped over on the floor in the kitchen. Unable to talk and total right sided weakness. No seizures. Has HTn and HLD . Questionable history of CVA in past.No CAD.No Sob.No chest pain.Language barrier present. She's had some right-sided weakness before but it has improved with surgery. Her son says that this is the worst her weakness has been. Acute CVA Continue with, Neuro checks, ASA, STATIN, ECHO, MRI showed left MCA acute infection CAROTID US. REHAB EVAL, PT/OT, speech eval MRA showed partial occlusive disease intracranial left MCA artery but patent on right sides. Neurology input noted Speech eval concerning for aspiration. started on puree diet with thin liquids and aspiration precautions Fever Afebrile. Elevated lactate may be from acute fashion. check crp, blood cultures, ?accuracy of data, no one was notified. chest xray showed no acute events. pleural thickening identified. Not consistent with aspiration Fall Secondary to CVA in a patient with already hemiplegia. Right sided hemiplegia Worse due to the acute stroke. Prior history was secondary to nerve entrapment. Patient did have a neck surgery with screws in the back. She ambulates with a limp and cane HTN Continue good control, outside window of permissive HTN HLD Initiate statin therapy DVT/GI prophy PATIENT IS UNISURED AND THIS MAY CREATE AN ISSUE WITH DISCHARGE WILL OBTAIN CONSULTATION WITH CASE MANAGEMENT Subjective Date of service: 09/08/17 Principal diagnosis: metabolic encephalopathy Interval history: Remains confused Objective - Exam Narrative Exam: GEN: Well-developed well-nourished. ill-appearing HEENT: NC/AT, PERRL. No rhionorrhea NECK: Supple, no adenopathy, no thyromegaly, no JVD CVS/HEART: RRR, S1S2 normal. No R/M/G. Pulses present bilaterally CHEST/LUNGS: Symmetrical chest expansion, good air entry bilaterally, CTA [place] GI/Abdomen: Soft, NTND, good bowel sounds, no guarding or rebound /Bladder: No suprapubic tenderness, no CVA EXT: No c/c/e Skin: No obvious rash MSK: Spontaneous movement x 4 Neuro: Confused. None focal. Seen moving all limbs Psych: Could not be assessed. Patient's confused - Constitutional Vitals: Vital Signs - 12hr 09/08/17 08:00 Temperature 99.2 F Pulse Rate 71 Respiratory 18 Rate Blood Pressure 110/68 [Left] O2 Sat by Pulse 98 Oximetry - Labs CBC & Chem 7: 09/08/17 03:51 09/08/17 03:51 Labs: Abnormal lab results 09/07/17 09/08/17 09/08/17 Range/Units 14:40 00:34 03:51 MCH 27 L (28-32) pg Chloride (98-107) mmol/L Glucose (65-100) mg/dL POC Glucose 177 H (70-105) Lactic Acid 3.20 H* (0.7-2.0) mmol/L 09/08/17 Range/Units 03:51 MCH (28-32) pg Chloride 96.6 L (98-107) mmol/L Glucose 119 H (65-100) mg/dL POC Glucose (70-105) Lactic Acid (0.7-2.0) mmol/L
[2017-09-08 20:22] LABS: Basophils % (Auto) 0.4 % (0.0-1.8); Eosinophils % (Auto) 3.4 % (0.0-4.3); Hematocrit 38.2 % (30.3-42.9); Hemoglobin 12.6 gm/dl (10.1-14.3); Mean Corpuscular HGB Conc 33 % (30-34); Mean Corpuscular Hemoglobin 27 pg (28-32); Mean Corpuscular Volume 81 fl (79-97); Platelet Count 203 K/mm3 (140-440); Red Blood Count 4.69 M/mm3 (3.65-5.03); Red Cell Distribution Width 14.4 % (13.2-15.2); White Blood Count 6.6 K/mm3 (4.5-11.0)
[2017-09-08] MEDS: ZOCOR PO SCH (23:25)
[2017-09-09 05:29] LABS: Basophils % (Auto) 0.7 % (0.0-1.8); Eosinophils % (Auto) 4.3 % (0.0-4.3); Hematocrit 35.5 % (30.3-42.9); Hemoglobin 12.4 gm/dl (10.1-14.3); Mean Corpuscular HGB Conc 35 % (30-34); Mean Corpuscular Hemoglobin 28 pg (28-32); Mean Corpuscular Volume 80 fl (79-97); Platelet Count 209 K/mm3 (140-440); Red Blood Count 4.45 M/mm3 (3.65-5.03); Red Cell Distribution Width 13.9 % (13.2-15.2); White Blood Count 5.3 K/mm3 (4.5-11.0)
[2017-09-09] MEDS: ZOSYN/NS 3.375GM/50ML 3.375 GM/50 ML BAG IV SCH ×2 (06:02→14:56)
--- NOTE | 2017-09-09 06:54 | Consultation ---
HISTORY OF PRESENT ILLNESS: This is a 71-year-old black female that presents to [facility] with new onset right-sided weakness, complications are that of several years back, according to her son, she suffered from a severe neck injury, underwent Neurosurgery to the neck and subsequent to that had right-sided paralysis of her arm and leg. She has gradually been getting over this when she had the onset of weakness of her right arm, right leg and aphasia. She was admitted to the hospital and I have reviewed her MRI/MRA. Her MRI scan shows a large area of infarct, ischemic in the left cerebral hemisphere, frontal, parietal, temporal; this has all the appearance of being an embolic stroke given the large territory, possibly cardiac origin, and as well, on looking at her MRA, she has a patchy vessel stenosis intracranially in the MCA branches, but there is patent flow. I did review over this with the radiologist. PHYSICAL EXAMINATION: On examination of the patient, she is aphasic. She has a right hemiparesis. She has facial weakness. She has a supple neck. No meningismus. Full ocular movements. Motor tone is reduced on the right side entirely. Sensory examination hypesthesia, pinprick and light touch right arm, right leg, right face. The patient has no overt seizures, no asterixis. No dystonia. Palpating the right area of the neck, I cannot detect the area where she had a previous surgery despite the history given to me by the son. IMPRESSION: Acute ischemic stroke with the above factors discussed, including MRA review with Radiology. At this point, a high dose statin therapy, Plavix and hypertensive control. By family history, she does have a prior history of diabetes. I am not sure the nature of the surgery she had on the right side, but obviously, if the surgery was to the right side of the neck, there is no potential for interfering with flow of the left carotid system, but this nonetheless should be looked at with the echocardiography. Thank you again for this consult. JOB# [id number] ADRIENNE/NTS
[2017-09-09 08:46] LABS: Alanine Aminotransferase 65 units/L (7-56); Albumin 3.2 g/dL (3.9-5); Albumin/Globulin Ratio 1.1 %; Anion Gap 18 mmol/L; BUN/Creatinine Ratio 19; Blood Urea Nitrogen 19 mg/dL (7-17); Calcium 8.5 mg/dL (8.4-10.2); Carbon Dioxide 25 mmol/L (22-30); Chloride 101.7 mmol/L (98-107); Glucose 114 mg/dL (65-100); Potassium 3.9 mmol/L (3.6-5.0); Sodium 141 mmol/L (137-145); Total Protein 6.1 g/dL (6.3-8.2)
[2017-09-09 10:08] LABS: Alkaline Phosphatase 155 units/L (35-129)
[2017-09-09] MEDS: LOVENOX SUB-Q SCH (10:36)
[2017-09-09] MEDS: LOPRESSOR PO SCH ×2 (10:37→21:49)
[2017-09-09] MEDS: ZESTRIL PO SCH (10:37)
[2017-09-09] MEDS: ASPIRIN PO SCH (10:37)
[2017-09-09] MEDS: LEVAQUIN 750MG/150ML 750 MG/150 ML BAG IV SCH (10:38)
--- NOTE | 2017-09-09 12:23 | Discharge Summary ---
Providers - Providers Date of Admission: 09/05/17 16:09 Attending physician: HECTOR MADDEN MD 09/05/17 16:49 Speech Therapy Evaluation and Treat [CONS] Routine Reason For Exam: Failed bedside swallow screen 09/06/17 10:42 Consult to Physician [CONS] Routine Consulting Provider: ROCIO RAYO Reason For Exam: CVA Place consult to:: Dr. Ramirez Notified:: Sunil RN Phone number called:: Was contact made?: Yes If yes, spoke with:: Selene-Office Time called:: 11:31 09/07/17 13:52 Consult to Case Management [CONS] Routine Services Needed at Discharge: Software Applications Developer Notified:: case Mngt Additional Physician Instructions: unisured, CVA WILL NEED RESOURCES Primary care physician: DIRECTOR OF ENGINEERING Hospitalization Reason for admission: CVA Condition: Stable Hospital course: 71 year old AAF from [facility] who speaks [place] language which is commonly spoken in [place] brought in for Rt sided weakness and Aphasia.Patient is normally talking and walking around.Patient was home alone and when the daughter arrived-patient was found to be slumped over on the floor in the kitchen. Unable to talk and total right sided weakness. No seizures. Has HTN and HLD . Questionable history of CVA in past. No CAD.No Sob.No chest pain.Language barrier present. She's had some right-sided weakness before but it has improved with surgery. Her son says that this is the worst her weakness has been. CVA * MRI/MRA reveals a large left MCA stroke with large area of ischemia of the left frontal/parietal/temporal lobe with partial occlusive disease intracranial left MCA artery but patent on the sides. * Neurology input noted, continue ASA, statin. Patient will need prolonged home health care for recovery * Unknown time of onset so was not a candidate for TPA * Speech eval concerning for aspiration. started on puree diet with thin liquids and aspiration precautions and family educated * patient to continue speech eval as outpatient SIRS * secondary to non infectious etiology * With elevated lactate no evidence of sepsis. * hold antibiotics Fall * Secondary to CVA in a patient with already hemiplegia. Right sided hemiplegia * Worse due to the stroke. Prior history was secondary to nerve entrapment. Patient did have a neck surgery with screws in the back. * She ambulates with a limp and cane prior to this event * Home health was arranged by case management HTN * Continue good control, outside window of permissive HTN HLD * Initiate statin therapy Per PT documentation, patient improved over the past 4 days to sitting position. PATIENT Was stable at the time of discharge, information porvided to the family in detail with daily updates Disposition: [id number] HOME UNDER HOME HLTH Time spent for discharge: 35 mins Core Measure Documentation - Palliative Care Palliative Care/ Comfort Measures: Not Applicable - Core Measures Any of the following diagnoses?: stroke - VTE Discharge Requirements Deep Vein Thrombosis/Pulmonary Embolism Present on Admission: No - Stroke Discharge Requirements Statin for LDL = or >70 mg/dl on DC: Yes Anticoag for atrial fib/atrial flutter: Not Applicable Antithrombotic for ischemic stroke: Yes Exam - Physical Exam Narrative exam: VITAL SIGNS: Reviewed. GENERAL: The patient appeared well nourished and normally developed. Vital signs as documented. HEAD: No signs of head trauma. EYES: Pupils are equal. Extraocular motions intact. EARS: Hearing grossly intact. MOUTH: Oropharynx is normal. NECK: No adenopathy, no JVD. CHEST: Chest with clear breath sounds bilaterally. No wheezes, rales, or rhonchi. CARDIAC: Regular rate and rhythm. S1 and S2, without murmurs, gallops, or rubs. VASCULAR: No Edema. Peripheral pulses normal and equal in all extremities. ABDOMEN: Soft, without detectable tenderness. No sign of distention. No rebound or guarding, and no masses palpated. Bowel Sounds normal. MUSCULOSKELETAL: Good range of motion of all major joints. Extremities without clubbing, cyanosis or edema. NEUROLOGIC EXAM: Alert and oriented x 3. Right facial droop. Motor strength on the right 2 over 5. still with expressive aphasia. Follows commands. PSYCHIATRIC: Mood normal. SKIN: No rash or lesions. - Constitutional Vitals: Temp Pulse Resp BP Pulse Ox 98.5 F 69 18 110/70 98 09/09/17 10:10 09/09/17 10:37 09/09/17 10:10 09/09/17 10:37 09/09/17 10:11 Plan Activity: advance as tolerated, fall precautions Diet: regular Special Instructions: record daily BP diary, physical therapy, occupational therapy, home health RN, other (speech therapy) Follow up with: [facility] [Provider Group] - 7 Days PRIMARY CARE, [Primary Care Provider] - 7 Days ROCIO RAYO MD [Staff Physician] - 7 Days Prescriptions: Aspirin [Aspirin TAB] 325 mg PO QDAY #30 tablet Metoclopramide [Reglan TAB] 10 mg PO Q6H PRN #14 tablet PRN Reason: Nausea And Vomiting Pravastatin [Pravachol] 40 mg PO DAILY #30 tablet
--- NOTE | 2017-09-09 15:07 | Consultation ---
History of Present Illness - Reason for Consult Consult date: 09/09/17 stroke - History of Present Illness she may be discharged at this time as I went over the MRA and both MCA complexes are largely patent with only small areas of stenosis rec high dose statin HTN control and 325 mg ASA Past History Past Medical History: hypertension, hyperlipidemia, stroke (???) Past Surgical History: No surgical history Social history: no significant social history, lives with family, full code Family history: hypertension Medications and Allergies Allergies Allergy/AdvReac Type Severity Reaction Status Date / Time No Known Allergies Allergy Unverified 09/05/17 13:24 Home Medications Medication Instructions Recorded Confirmed Last Taken Type Lisinopril [Zestril] 20 mg PO DAILY 09/05/17 09/05/17 Unknown History Metoprolol [Lopressor TAB] 25 mg PO BID 09/05/17 09/05/17 09/05/17 History Aspirin [Aspirin TAB] 325 mg PO QDAY #30 tablet 09/09/17 Unknown Rx Metoclopramide [Reglan TAB] 10 mg PO Q6H PRN #14 tablet 09/09/17 Unknown Rx Pravastatin [Pravachol] 40 mg PO DAILY #30 tablet 09/09/17 Unknown Rx Active Meds: Active Medications Acetaminophen (Tylenol) 650 mg PO Q4H PRN PRN Reason: Pain, Mild (1-3) Acetaminophen/Hydrocodone Bitart ([place] 5/325) 2 each PO Q6H PRN PRN Reason: Pain, Moderate (4-6) Aspirin (Aspirin) 325 mg PO QDAY [facility] Last Admin: 09/09/17 10:37 Dose: 325 mg Bisacodyl (Dulcolax) 10 mg TX QDAY PRN PRN Reason: Constipation Enoxaparin Sodium (Lovenox) 40 mg SUB-Q QDAY@1000 [facility] Last Admin: 09/09/17 10:36 Dose: 40 mg Lisinopril (Zestril) 20 mg PO DAILY [facility] Last Admin: 09/09/17 10:37 Dose: 20 mg Magnesium Hydroxide (Milk Of Magnesia) 30 ml PO Q4H PRN PRN Reason: Constipation Metoclopramide HCl (Reglan) 10 mg PO Q6H PRN PRN Reason: Nausea And Vomiting Metoprolol Tartrate (Lopressor) 25 mg PO BID [facility] Last Admin: 09/09/17 10:37 Dose: 25 mg Ondansetron HCl (Zofran) 4 mg IV Q8H PRN PRN Reason: N/V unrelieved by Reglan Promethazine HCl (Phenergan) 25 mg TX Q6H PRN PRN Reason: Nausea And Vomiting Simvastatin (Zocor) 20 mg PO QHS [facility] Last Admin: 09/08/17 23:25 Dose: 20 mg Sodium Chloride (Sodium Chloride Flush Syringe 10 Ml) 10 ml IV PRN PRN PRN Reason: LINE FLUSH Exam - Constitutional Vitals: Temp Pulse Resp BP Pulse Ox 98.5 F 69 18 110/70 98 09/09/17 10:10 09/09/17 10:37 09/09/17 10:10 09/09/17 10:37 09/09/17 10:11 Results - Labs CBC & Chem 7: 09/09/17 04:47 09/09/17 08:00 Labs: Abnormal lab results 09/08/17 09/08/17 09/08/17 Range/Units 09:20 12:24 20:00 MCH 27 L (28-32) pg MCHC (30-34) % [place] % (Auto) 10.1 H (0.0-7.3) % BUN (7-17) mg/dL Glucose (65-100) mg/dL POC Glucose 114 H 158 H (70-105) AST (5-40) units/L ALT (7-56) units/L Alkaline Phosphatase (35-129) units/L Total Protein (6.3-8.2) g/dL Albumin (3.9-5) g/dL 09/08/17 09/09/17 09/09/17 Range/Units 21:10 04:47 08:00 MCH (28-32) pg MCHC 35 H (30-34) % [place] % (Auto) 12.8 H (0.0-7.3) % BUN 19 H (7-17) mg/dL Glucose 114 H (65-100) mg/dL POC Glucose 149 H (70-105) AST 74 H (5-40) units/L ALT 65 H (7-56) units/L Alkaline Phosphatase 155 H (35-129) units/L Total Protein 6.1 L (6.3-8.2) g/dL Albumin 3.2 L (3.9-5) g/dL
[2017-09-09] MEDS: ZOCOR PO SCH (21:49)
--- NOTE | 2017-09-09 22:25 | Progress Note ---
Assessment and Plan Assessment and plan: 71 year old AAF from [facility] who speaks [place] language [place] is commonly spoken in [place] brought in for Rt sided weakness and Aphasia.Patient is normally talking and walking around.Patient was home alone and when the daughter arrived-patient was found to be slumped over on the floor in the kitchen. Unable to talk and total right sided weakness. Noseizures. Has HTn and HLD . Questionable history of CVA in past.No CAD.No Sob.No chest pain.Language barrier present. She's had some right-sided weakness before but it has improved with surgery. Her son says that this is the worst her weakness has been. CVA * Neurology consult, Neuro checks, ASA, STATIN, ECHO, MRI/MRA, CAROTID US. 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 * Neurology input noted, continue ASA * Unknown time of onset * Speech eval concerning for aspiration. started on puree diet with thin liquids and aspiration precautions * Discussed with son, awaiting PT education of family and also patient Fever * With elevated lactate no evidence of sepsis. * hold antibiotics Fall * Secondary to CVA in a patient with already hemiplegia. Right sided hemiplegia * Worse due to the stroke. Prior history was secondary to nerve entrapment. Patient did have a neck surgery with screws in the back. * She ambulates with a limp and cane prior to this event HTN * Continue good control, outside window of permissive HTN HLD * Initiate statin therapy DVT/GI prophy Plan discussed in detail with family Discussed in detail with son at the bedside PATIENT IS UNISURED AND THIS MAY CREATE AN ISSUE WITH DISCHARGE WILL OBTAIN CONSULTATION WITH CASE MANAGEMENT History Interval history: patient seen and examined, son and daughter inlaw at the bedside. remains weak on the right upper ext. Hospitalist Physical - Physical exam Narrative exam: VITAL SIGNS: Reviewed. GENERAL: The patient appeared well nourished and normally developed. Vital signs as documented. HEAD: No signs of head trauma. EYES: Pupils are equal. Extraocular motions intact. EARS: Hearing grossly intact. MOUTH: Oropharynx is normal. NECK: No adenopathy, no JVD. CHEST: Chest with clear breath sounds bilaterally. No wheezes, rales, or rhonchi. CARDIAC: Regular rate and rhythm. S1 and S2, without murmurs, gallops, or rubs. VASCULAR: No Edema. Peripheral pulses normal and equal in all extremities. ABDOMEN: Soft, without detectable tenderness. No sign of distention. No rebound or guarding, and no masses palpated. Bowel Sounds normal. MUSCULOSKELETAL: Good range of motion of all major joints. Extremities without clubbing, cyanosis or edema. NEUROLOGIC EXAM: Alert and oriented x 3. Motor strength on the right 2 over 5. aphasia persists. Follows commands. PSYCHIATRIC: Mood normal. SKIN: No rash or lesions. - Constitutional Vitals: Temp Pulse Resp BP Pulse Ox 98.6 F 72 20 107/63 99 09/09/17 20:29 09/09/17 20:29 09/09/17 20:29 09/09/17 21:49 09/09/17 20:29 General appearance: Present: no acute distress, well-nourished Results - Labs CBC & Chem 7: 09/09/17 04:47 09/09/17 08:00 Labs: Laboratory Last Values WBC 5.3 K/mm3 (4.5-11.0) 09/09/17 04:47 RBC 4.45 M/mm3 (3.65-5.03) 09/09/17 04:47 Hgb 12.4 gm/dl (10.1-14.3) 09/09/17 04:47 Hct 35.5 % (30.3-42.9) 09/09/17 04:47 MCV 80 fl (79-97) 09/09/17 04:47 MCH 28 pg (28-32) 09/09/17 04:47 MCHC 35 % (30-34) H 09/09/17 04:47 RDW 13.9 % (13.2-15.2) 09/09/17 04:47 Plt Count 209 K/mm3 (140-440) 09/09/17 04:47 Lymph % (Auto) 28.1 % (13.4-35.0) 09/09/17 04:47 [place] % (Auto) 12.8 % (0.0-7.3) H 09/09/17 04:47 Eos % (Auto) 4.3 % (0.0-4.3) 09/09/17 04:47 Baso % (Auto) 0.7 % (0.0-1.8) 09/09/17 04:47 Lymph # 1.5 K/mm3 (1.2-5.4) 09/09/17 04:47 [place] # 0.7 K/mm3 (0.0-0.8) 09/09/17 04:47 Eos # 0.2 K/mm3 (0.0-0.4) 09/09/17 04:47 Baso # 0.0 K/mm3 (0.0-0.1) 09/09/17 04:47 Seg Neutrophils % 54.1 % (40.0-70.0) 09/09/17 04:47 Seg Neutrophils # 2.9 K/mm3 (1.8-7.7) 09/09/17 04:47 PT 13.6 Sec. (12.2-14.9) 09/05/17 13:25 INR 0.99 (0.87-1.13) 09/05/17 13:25 APTT 25.4 Sec. (24.2-36.6) 09/05/17 13:25 Thrombin Time 15.0 Sec. (15.1-19.6) L 09/05/17 13:25 Sodium 141 mmol/L (137-145) 09/09/17 08:00 Potassium 3.9 mmol/L (3.6-5.0) 09/09/17 08:00 Chloride 101.7 mmol/L (98-107) 09/09/17 08:00 Carbon Dioxide 25 mmol/L (22-30) 09/09/17 08:00 Anion Gap 18 mmol/L 09/09/17 08:00 BUN 19 mg/dL (7-17) H 09/09/17 08:00 Creatinine 1.0 mg/dL (0.7-1.2) 09/09/17 08:00 Estimated GFR > 60 ml/min 09/09/17 08:00 BUN/Creatinine Ratio 19 % 09/09/17 08:00 Glucose 114 mg/dL (65-100) H 09/09/17 08:00 POC Glucose 149 (70-105) H 09/08/17 21:10 Hemoglobin A1c 5.4 % (4-6) 09/06/17 08:40 Lactic Acid 3.20 mmol/L (0.7-2.0) H* 09/08/17 00:34 Calcium 8.5 mg/dL (8.4-10.2) 09/09/17 08:00 Total Bilirubin 0.80 mg/dL (0.1-1.2) 09/09/17 08:00 AST 74 units/L (5-40) H 09/09/17 08:00 ALT 65 units/L (7-56) H 09/09/17 08:00 Alkaline Phosphatase 155 units/L (35-129) H 09/09/17 08:00 Troponin T < 0.010 ng/mL (0.00-0.029) 09/05/17 13:25 C-Reactive Protein 3.70 mg/dL (0.00-1.30) H 09/07/17 12:57 Total Protein 6.1 g/dL (6.3-8.2) L 09/09/17 08:00 Albumin 3.2 g/dL (3.9-5) L 09/09/17 08:00 Albumin/Globulin Ratio 1.1 % 09/09/17 08:00 Triglycerides 102 mg/dL (2-149) 09/06/17 08:40 Cholesterol 241 mg/dL (50-199) H 09/06/17 08:40 LDL Cholesterol Direct 149 mg/dL (50-130) H 09/06/17 08:40 HDL Cholesterol 72 mg/dL (40-59) H 09/06/17 08:40 Cholesterol/HDL Ratio 3.34 % 09/06/17 08:40
[2017-09-10 07:56] LABS: Basophils % (Auto) 0.4 % (0.0-1.8); Eosinophils % (Auto) 3.5 % (0.0-4.3); Hematocrit 37.1 % (30.3-42.9); Hemoglobin 12.2 gm/dl (10.1-14.3); Mean Corpuscular HGB Conc 33 % (30-34); Mean Corpuscular Hemoglobin 27 pg (28-32); Mean Corpuscular Volume 81 fl (79-97); Platelet Count 242 K/mm3 (140-440)
[2017-09-10 08:14] LABS: Alanine Aminotransferase 50 units/L (7-56); Albumin 3.2 g/dL (3.9-5); Albumin/Globulin Ratio 1.1 %; Alkaline Phosphatase 161 units/L (35-129); Anion Gap 17 mmol/L; BUN/Creatinine Ratio 18; Blood Urea Nitrogen 16 mg/dL (7-17); Calcium 8.6 mg/dL (8.4-10.2); Carbon Dioxide 26 mmol/L (22-30); Chloride 102.5 mmol/L (98-107); Glucose 108 mg/dL (65-100); Potassium 4.2 mmol/L (3.6-5.0); Sodium 141 mmol/L (137-145); Total Protein 6.2 g/dL (6.3-8.2)
[2017-09-10] MEDS: LOPRESSOR PO SCH ×2 (10:47→21:13)
[2017-09-10] MEDS: ASPIRIN PO SCH (10:47)
[2017-09-10] MEDS: ZESTRIL PO SCH (10:47)
[2017-09-10] MEDS: LOVENOX SUB-Q SCH (10:48)
--- NOTE | 2017-09-10 11:41 | Progress Note ---
Assessment and Plan Assessment and plan: 71 year old AAF from [facility] who speaks [place] language which is commonly spoken in [place] brought in for Rt sided weakness and Aphasia.Patient is normally talking and walking around.Patient was home alone and when the daughter arrived-patient was found to be slumped over on the floor in the kitchen. Unable to talk and total right sided weakness. Noseizures. Has HTn and HLD . Questionable history of CVA in past.No CAD.No Sob.No chest pain.Language barrier present. She's had some right-sided weakness before but it has improved with surgery. Her son says that this is the worst her weakness has been. CVA * Neurology consult, Neuro checks, ASA, STATIN, ECHO, MRI/MRA, CAROTID US noted. 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 * Neurology input noted, continue ASA * Unknown time of onset * Speech eval concerning for aspiration. started on puree diet with thin liquids and aspiration precautions * Discussed with son, awaiting PT education of family and also patient Fever * With elevated lactate no evidence of sepsis. * hold antibiotics Fall * Secondary to CVA in a patient with already hemiplegia. Right sided hemiplegia * Worse due to the stroke. Prior history was secondary to nerve entrapment. Patient did have a neck surgery with screws in the back. * She ambulates with a limp and cane prior to this event HTN * Continue good control, outside window of permissive HTN HLD * Initiate statin therapy DVT/GI prophy Plan discussed in detail with family Discussed in detail with son at the bedside Discharge in AM for a safe discharge. Family relocating. Patient is uninsured and unable to go to acute Rehab Needs PT daily to facilitate and optimse discharge. History Interval history: patient seen and examined, son and daughter inlaw at the bedside. remains weak on the right upper ext. Family concerned about lack of agreesive PT. I discussed with them about expectations and PTs strategy which is being performed. Hospitalist Physical - Physical exam Narrative exam: VITAL SIGNS: Reviewed. GENERAL: The patient appeared well nourished and normally developed. Vital signs as documented. HEAD: No signs of head trauma. EYES: Pupils are equal. Extraocular motions intact. EARS: Hearing grossly intact. MOUTH: Oropharynx is normal. NECK: No adenopathy, no JVD. CHEST: Chest with clear breath sounds bilaterally. No wheezes, rales, or rhonchi. CARDIAC: Regular rate and rhythm. S1 and S2, without murmurs, gallops, or rubs. VASCULAR: No Edema. Peripheral pulses normal and equal in all extremities. ABDOMEN: Soft, without detectable tenderness. No sign of distention. No rebound or guarding, and no masses palpated. Bowel Sounds normal. MUSCULOSKELETAL: Good range of motion of all major joints. Extremities without clubbing, cyanosis or edema. NEUROLOGIC EXAM: awake and oriented x 3. Motor strength on the right 2 over 5. aphasia persists. Follows some commands. PSYCHIATRIC: Mood normal. SKIN: No rash or lesions. - Constitutional Vitals: Temp Pulse Resp BP Pulse Ox 98.6 F 75 18 133/74 99 09/10/17 05:15 09/10/17 10:57 09/10/17 05:15 09/10/17 05:15 09/10/17 05:15 General appearance: Present: no acute distress, well-nourished Results - Labs CBC & Chem 7: 09/10/17 07:08 09/10/17 07:08 Labs: Laboratory Last Values WBC 6.0 K/mm3 (4.5-11.0) 09/10/17 07:08 RBC 4.60 M/mm3 (3.65-5.03) 09/10/17 07:08 Hgb 12.2 gm/dl (10.1-14.3) 09/10/17 07:08 Hct 37.1 % (30.3-42.9) 09/10/17 07:08 MCV 81 fl (79-97) 09/10/17 07:08 MCH 27 pg (28-32) L 09/10/17 07:08 MCHC 33 % (30-34) 09/10/17 07:08 RDW 14.0 % (13.2-15.2) 09/10/17 07:08 Plt Count 242 K/mm3 (140-440) 09/10/17 07:08 Lymph % (Auto) 20.7 % (13.4-35.0) 09/10/17 07:08 [place] % (Auto) 9.7 % (0.0-7.3) H 09/10/17 07:08 Eos % (Auto) 3.5 % (0.0-4.3) 09/10/17 07:08 Baso % (Auto) 0.4 % (0.0-1.8) 09/10/17 07:08 Lymph # 1.3 K/mm3 (1.2-5.4) 09/10/17 07:08 [place] # 0.6 K/mm3 (0.0-0.8) 09/10/17 07:08 Eos # 0.2 K/mm3 (0.0-0.4) 09/10/17 07:08 Baso # 0.0 K/mm3 (0.0-0.1) 09/10/17 07:08 Seg Neutrophils % 65.7 % (40.0-70.0) 09/10/17 07:08 Seg Neutrophils # 4.0 K/mm3 (1.8-7.7) 09/10/17 07:08 PT 13.6 Sec. (12.2-14.9) 09/05/17 13:25 INR 0.99 (0.87-1.13) 09/05/17 13:25 APTT 25.4 Sec. (24.2-36.6) 09/05/17 13:25 Thrombin Time 15.0 Sec. (15.1-19.6) L 09/05/17 13:25 Sodium 141 mmol/L (137-145) 09/10/17 07:08 Potassium 4.2 mmol/L (3.6-5.0) 09/10/17 07:08 Chloride 102.5 mmol/L (98-107) 09/10/17 07:08 Carbon Dioxide 26 mmol/L (22-30) 09/10/17 07:08 Anion Gap 17 mmol/L 09/10/17 07:08 BUN 16 mg/dL (7-17) 09/10/17 07:08 Creatinine 0.9 mg/dL (0.7-1.2) 09/10/17 07:08 Estimated GFR > 60 ml/min 09/10/17 07:08 BUN/Creatinine Ratio 18 % 09/10/17 07:08 Glucose 108 mg/dL (65-100) H 09/10/17 07:08 POC Glucose 106 (70-105) H 09/10/17 07:59 Hemoglobin A1c 5.4 % (4-6) 09/06/17 08:40 Lactic Acid 1.00 mmol/L (0.7-2.0) 09/09/17 23:51 Calcium 8.6 mg/dL (8.4-10.2) 09/10/17 07:08 Total Bilirubin 0.50 mg/dL (0.1-1.2) 09/10/17 07:08 AST 43 units/L (5-40) H 09/10/17 07:08 ALT 50 units/L (7-56) 09/10/17 07:08 Alkaline Phosphatase 161 units/L (35-129) H 09/10/17 07:08 Troponin T < 0.010 ng/mL (0.00-0.029) 09/05/17 13:25 C-Reactive Protein 3.70 mg/dL (0.00-1.30) H 09/07/17 12:57 Total Protein 6.2 g/dL (6.3-8.2) L 09/10/17 07:08 Albumin 3.2 g/dL (3.9-5) L 09/10/17 07:08 Albumin/Globulin Ratio 1.1 % 09/10/17 07:08 Triglycerides 102 mg/dL (2-149) 09/06/17 08:40 Cholesterol 241 mg/dL (50-199) H 09/06/17 08:40 LDL Cholesterol Direct 149 mg/dL (50-130) H 09/06/17 08:40 HDL Cholesterol 72 mg/dL (40-59) H 09/06/17 08:40 Cholesterol/HDL Ratio 3.34 % 09/06/17 08:40
[2017-09-10] MEDS: ZOCOR PO SCH (21:13)
[2017-09-11] MEDS: LOPRESSOR PO SCH ×2 (10:27→21:11)
[2017-09-11] MEDS: LOVENOX SUB-Q SCH (10:27)
[2017-09-11] MEDS: ZESTRIL PO SCH (10:27)
[2017-09-11] MEDS: ASPIRIN PO SCH (10:27)
[2017-09-11 20:16] VITALS: BP 132/79
[2017-09-11] MEDS: ZOCOR PO SCH (21:11)
== END 2017-09-11 21:20 | disposition home health service (06) | DRG 65 ==
LOC: ED 13:23 → 4A 16:09
PROVIDERS: ADMIT Internal Medicine; ATTEND Internal Medicine
PROC: 3E0234Z Introduction of Serum, Toxoid and Vaccine into Muscle, Percutaneous Approach (ICD-10-PCS; principal; 2017-09-07)
DX: I63.9 Cerebral infarction, unspecified (principal); G81.91 Hemiplegia, unspecified affecting right dominant side; I10 Essential (primary) hypertension; E78.5 Hyperlipidemia, unspecified; Z82.49 Family history of ischemic heart disease and other diseases of the circulatory system; Z79.899 Other long term (current) drug therapy; W18.39XA Other fall on same level, initial encounter; Y93.89 Activity, other specified; Y92.89 Other specified places as the place of occurrence of the external cause; Y99.8 Other external cause status
CPT/HCPCS: 36415; 70450; 70544; 70551; 71010; 80048; 80053; 80061; 82140; 82962; 83036; 84484; 85025; 85027; 85610; 85670; 85730; 86140; 87040; 90686; 90732; 93005; 93010; 93306; 93880; 99285; J1650; J1956; J2543